=== PATIENT | male | born 1975 | race Caucasian/White ===

== ENCOUNTER 2017-01-22 00:38 | Emergency (ER) | payer SELFPAY ==
[~2017-01-22] VITALS: Ht 175.3 cm; Wt 98.9 kg
[~2017-01-22 00:38] MED LIST: ALBU17AE23 IH; ASPI1TAB PO; DOXY100C2 PO
--- NOTE | 2017-01-22 00:53 | ED General ---
General Chief Complaint: Allergic Reaction Stated Complaint: SOB,ALLERGIC RXN Source of Information: Patient, Family Exam Limitations: No Limitations History of Present Illness Time Seen by Provider: 00:38 Initial Comments Here with complaint of shortness of breath and concerns of allergic reaction after taking propranolol tonight. He has just been started on this and he is on his second day. He states that each dose this caused him problems after about an hour and tonight he take his dose and had the feeling of not being a little to breathe. Came to the ER for evaluation. No reports of swelling or hives. No abdominal discomfort. He is on propranolol for hypertension. Timing/Duration: 1 Hour Severity: Moderate Associated Systoms: No Chest Pain, No Cough, No Diaphoresis, No Fever/Chills, No Nausea/Vomiting, Shortness of Air, No Weakness Allergies and Home Medications Allergies Coded Allergies: propranolol (Verified Adverse Reaction, Severe, SOB/CHEST TIGHTNESS, ) Shellfish (Unverified Adverse Reaction, Intermediate, HIVES, 12/17/11) erythromycin base (Unverified Adverse Reaction, Intermediate, "ALMOST KILLED ME WHEN I WAS A KID", 12/17/11) prednisone (Verified Adverse Reaction, Intermediate, DYSPNEA, 12/17/11) Penicillins (Unverified Adverse Reaction, Mild, 12/17/11) rosuvastatin (Verified Adverse Reaction, Mild, HEADACHE, 01/22/17) Uncoded Allergies: MULTIPLE ANTIBIOTICS (Adverse Reaction, Mild, 12/17/11) Home Medications Albuterol 17 Gm Aerosol, 2 PUFF IH BID, (Reported) Aspirin/Acetaminophen/Caffeine 1 Each Tablet, 2 TAB PO PRN, (Reported) Doxycycline Hyclate 100 Mg Capsule, 1 EACH PO BID for 10 Days Prescribed by: AMBER PRABHAKAR on 12/17/112117 Constitutional: see HPI, No chills, No diaphoresis, No fever EENTM: no symptoms reported Respiratory: see HPI, short of breath, No wheezing Cardiovascular: no symptoms reported Gastrointestinal: no symptoms reported, No abdominal pain, No nausea, No vomiting Genitourinary: no symptoms reported Skin: no symptoms reported Psychiatric/Neurological: Anxiety, Denies Weakness All Other Systems Reviewed Negative Unless Noted: Yes Past Ytcrrxo-Sopelr-Xwnaou Hx Patient Social History Alcohol Use: Occasionally Uses Recreational Drug Use: No Smoking Status: Former Smoker Type Used: Cigarettes 2nd Hand Smoke Exposure: Yes Recent Foreign Travel: No Contact w/Someone Who Travel: No Recent Hopitalizations: No Seasonal Allergies Seasonal Allergies: No Respiratory Respiratory Disorders: COPD Cardiovascular Cardiac Disorders: High Cholesterol, Hypertension Reviewed Nursing Assessment Reviewed/Agree w Nursing PMH: Yes Family Medical History Significant Family History: No Pertinent Family Hx Physical Exam Vital Signs Vital Sign - Last 12Hours 01/22/17 00:41 Temp 97.5 Pulse 73 Resp 16 B/P (MAP) 184/118 Pulse Ox 100 O2 Delivery Room Air Capillary Refill : General Appearance: WD/WN, Anxious, Mild Distress HEENT: PERRL/EOMI, Pharynx Normal Neck: Non Tender, Supple Respiratory: Lungs Clear, Normal Breath Sounds, No Wheezing Cardiovascular: Regular Rate, Rhythm, No Murmur Gastrointestinal: Non Tender, Soft Back: Normal Inspection, No CVA Tenderness, No Vertebral Tenderness Extremity: Non Tender, No Calf Tenderness Neurologic/Psychiatric: Alert, Oriented x3 Progress/Results/Core Measures Results/Orders Vital Signs/I&O Vital Sign - Last 12Hours 01/22/17 00:41 Temp 97.5 Pulse 73 Resp 16 B/P (MAP) 184/118 Pulse Ox 100 O2 Delivery Room Air Progress Note : Progress Note Seen and evaluated. Initial O2 sat 100 percent on room air with heart rate in the 70s. Blood pressure was a little elevated but patient was anxious. No indication of anaphylaxis currently but does appear to have some side effect related to the propranolol. We will monitor patient. 0205: Patient's blood pressure 135/89 and heart rate in the 60s with O2 sat 97 percent or greater on room air and patient states he feels much better. Discharged home with return precautions. Patient verbalize understanding instructions and agreement with plan. Departure Impression Impression: Primary Impression: Medication adverse effect Qualified Codes: T88.7XXA - Unspecified adverse effect of drug or medicament, initial encounter Disposition: HOME, SELF-CARE Condition: Improved Departure-Patient Inst. Decision time for Depature: 02:10 Referrals: [facility] (PCP/Family) Primary Care Physician Patient Instructions: Drug Allergy Add. Discharge Instructions: All discharge instructions reviewed with patient and/or family. Voiced understanding. Stop propranolol. Follow-up with your doctor in the morning for recheck and further evaluation and for consideration of a different blood pressure medicine. Return for worse pain, fever, vomiting, breathing problems, weakness or other concerns as needed. AMBER PRABHAKAR MD Jan 22, 2017 00:53
[2017-01-22 02:13] VITALS: BP 135/89
== END 2017-01-22 02:13 | disposition home or self-care (01) ==
LOC: EDUNIT# 00:38 → ER 00:41
DX: R06.02 Shortness of breath (principal); T44.7X5A Adverse effect of beta-adrenoreceptor antagonists, initial encounter; I10 Essential (primary) hypertension; J44.9 Chronic obstructive pulmonary disease, unspecified; E78.5 Hyperlipidemia, unspecified
CPT/HCPCS: 99281